=== PATIENT | female | born 2000 | race Caucasian/White ===

== ENCOUNTER 2025-02-05 12:45 | Outpatient (CLI) | payer BC, SELFPAY ==
--- NOTE | 2025-02-05 13:00 | CRLHL7_ITS ---
For Patients: As a result of the Cures Act, medical imaging exams and procedure reports are released immediately into your electronic medical record. You may view this report before your referring provider. If you have questions, please contact your health care provider. OB ULTRASOUND INDICATION: Dating and viability. TECHNIQUE: Real time grayscale imaging of the fetus was performed. Transvaginal. LMP: 12/11/2024. HENRY by LMP: 09/17/2025. GA: 8 w, 0 d. Previous US: No. CRL: 1.7 cm. 8 w 1 d. HENRY: 09/16/2024. FHR: 169 BPM. Gestational sac: 2.6 cm. Appears within normal limits. Yolk sac: 3.4 mm. Appears within normal limits. Right ovary: 3.2 x 1.3 x 2.0 cm. Left ovary: 3.0 x 2.5 x 2.2 cm. CL. COMMENT: Left corpus luteal cyst 1.7 x 1.6 x 1.5 cm. IMPRESSION: Single living intrauterine measuring 8 weeks 1 day and sonographic due dated 09/16/2025. Pedrito Moreno M.D. Diagnostic Radiologist [email or web address] ALDO/ovidio nolan/Dictated by: Pedrito Moreno MD @ 02/05/2025 1:31:00 PM (Electronically Signed)
--- OUTSIDE RECORDS SUMMARY | 2025-02-06 01:01 | XMS_ITS | Clinical Summary ---
Author Organization [facility] Address [address] [place] [address] Care Team Providers Care Underwriting Clerks Supervisor Name Role Phone Hugo Summers PA-C Primary Care Provider [phone] Source Comments You are receiving this document as you are listed as the primary care provider,follow-up provider, or the patient has been referred to you for consultation.This is in compliance with the Medicare and[facility] EHR Incentive Program,which states Providers who transition their patient to another setting of careor provider of care or refers their patient to another provider of care shouldprovide summary care record for each transition of care or referral. Tran[facility] Allergies Active Allergy Reactions Criticality Noted Date Comments Other 11/13/2003 PN: metal- local rash, Nickel allergy Medications clindamycin (CLEOCIN T) 1 % external solutionIndicat ions:Acne Vulgaris Apply topically two times a day. Indications: Common Acne 120 mL 6 4 Active ketoconazole (NIZORAL) 2 % creamIndication s:Tinea pedis of both feet Apply topically daily. Apply to affected areas of feet 2 times daily until clear plus one week 30 g 1 4 Active Active Problems Problem Noted Date Diagnosed Date Class 1 obesity due to exces s calories without serious comorbidity with body mass index (BMI) of 30.0 to 30.9 in adult 01/09/2024 Acne vulgaris 04/26/2017 Resolved Problems Problem Noted Date Diagnosed Date Resolved Date Otitis media 12/19/2006 03/21/2016 Overview (04/11/2017): Otitis Media NOS Immunizations Immunization Administration Dates Next Due 9vHPV (Gardasil 9) 04/07/2020,08/25/2019, 019 DTaP 01/26/2006, 2,2001,2001,0 2001 HepA Adult (19+ yrs) 04/07/2020 HepA Ped/Adol (1-18 yrs) 02/25/2019 HepB, Unspecified Formulation 2001, 001,2001 Hib (ActHIB) 04/25/2002,2001,2001 ,2001 IPV (Polio) 01/26/2006,2001,2001 ,2001 MCV4 Menveo 2m.+ (two vial) 02/25/2019, 6 MMR 01/26/2006,01/24/2002 Moderna Monovalent 12+ 12/28/2020,11/30/2020 Moderna Monovalent Booster 12+ 08/23/2021 TDAP (BOOSTRIX) 02/04/2013 Tdap 03/16/2023 Varicella 02/04/2013,01/24/2002 Family History Medical History Relation Name Comments Hypertension Father Dad Arrhythmia Maternal Grandfather bradyca rdia Cataract Maternal Grandfather Asthma Maternal Grandmother Hypertension Paternal Grandfather Grandpa Cataract Paternal Uncle Blindness Negative Family History Macular Degeneration Negative Family History Retinal Detachment Negative Family History Relation Name Status Comments Father Dad Maternal Grandfather Maternal Grandmother Paternal Grandfather Grandpa Paternal Uncle Social History Tobacco Use Types Packs/Day Years Used Date Smoking Tobacco: Never Smokeless Tobacco: Never Tobacco Cessation:Counseling Given: Not Answered Alcohol Use Standard Drinks/Week Comments Yes 0 (1 standard drink = 0.6 oz pur e alcohol) Once a month, one drink PHQ-2 Answer Date Recorded PHQ-2 Score 0 03/16/2023 Financial Resource Strain Answer Date R ecorded Is it hard for you to pay fo r the very basics like food, housing, medical care or heating? No 01/08/2024 Food Insecurity Answer Date Recorded Does your food run out before you have the money to buy more? No 01/08/2024 Transportation Needs Answer Date Record ed Does a lack of transportatio n keep you from your medical appointments or from getting your medications? No 024 Comments No Sex and Gender Information Value Date Recorded Sex Assigned at Not on file Legal Sex Female 7:14 AM CDT Gender Identity Not on file Sexual Orientation Not on file Occupation Industry Job Start Date Job End Date Student Not on file Not on file Not on file Last Filed Vital Signs Vital Sign Reading Time Taken Comments Blood Pressure 103/71 01/09/2024 9:06 AM CDT Pulse 68 01/09/2024 9:06 AM CDT Temperature 36.7 C (98.1 F) 01/12/2015 5:09 PM CDT Respiratory Rate 24 03/08/2007 10:12 AM CDT Oxygen Saturation - - Inhaled Oxygen Concentration - - Weight 91.2 kg (201 lb) 01/09/2024 9:06 AM CDT Height 174 cm (5' 8.5) 01/09/2024 9:06 AM CDT Body Mass Index 30.12 01/09/2024 9:06 AM CDT Plan of Treatment Health Maintenance Due Date Last Done Comments Hep C Screening (Preventive Services) 2001 HIV Screening (Preventive Services) 2017 COVID-19 Vaccine ( season) 2024 08/23/2021, 12/28/2020, 11/30/2020 Adult Preventive Visit 01/08/2025 , 03/16/2023, 04/06/2021, Additional history exists Chlamydia 01/08/2025 01/09/2024 Influenza Vaccine (Season Ended) 2025 Cervical Cancer Screening 03/16/2026 03/16/2023 DTaP/Tdap/Td Vaccine (8 - Tdap) 03/16/2033 03/16/2023, 02/04/2013, 02/04/2013, Additional history exists Zoster/Shingles Vaccine (1 of 2) 2051 HepB Vaccine Completed 2001, 01/2001, 2001 Hib Vaccine Completed 04/25/2002, 01/2001, 2001, Additional history exists IPV (Polio) Vaccine Completed 01/26/2006, 2001, 2001, Additional history exists Varicella Vaccine Completed 02/04/2013, , 01/24/2002 MCV4 Vaccine Completed 02/25/2019, 03/21/2016 HPV Vaccine Completed 04/07/2020, 01/2020, 02/25/2019 HepA Vaccine Completed 04/07/2020, 02/25/2019 Meningococcal B Vaccine Aged Out No l onger eligible based on patient's age to complete this topic Pneumococcal Vaccine Aged Out No long er eligible based on patient's age to complete this topic Procedures Procedure Name Priority Date/Time Associated Diagnosis Comments CHLAMYDIA & GC, URINE (14 YEARS AND OLDER) Routine 01/09/2024 9:32 AM CDT Routine screening for STI (sexually transmitted infection) CYTOLOGY (PAP) Routine 03/16/2023 10:11 AM CDT Screening for malignant neoplasm of cervix from Last 3 Months or Most Recently Relevant to Health Maintenance Results * Chlamydia & GC, Urine (14 Years and Older) (01/09/2024 9:32 AM CDT) Chlamydia Trachomatis STD Not Detected Not Detected 01/09/2024 9:51 PM CDT [facility] N. gonorrhoeae STD Not Detected Not Detected 01/09/2024 9:51 PM CDT [facility] Urine STD (Urine for STD) Non-blood Collection / Unknown 01/09/2024 9:32 AM CDT 01/09/2024 9:32 AM CDT Narrative [facility] - 01/09/2024 9:51 PM CDT Test performed by [employer] Amplification (TMA). us Hugo Summers PA-C LAB_1 Final Result [facility] [address] [place] [address], [facility] * PAP Test (03/16/2023 10:11 AM CDT) Case Report Pap Case: [id number] Authorizing Provider: Hugo Summers PA-C Collected: 03/16/2023 1011 Ordering Location: [facility] Received: 03/16/2023 1246 First Screen: Karly Crews Specimen: Pap Test, Routine, Cervix/Endocervix 03/28/2023 12:26 PM CDT [facility] Pap Specimen Adequacy Satisfactory for evaluation, endocervical/green sformation zone component present. 03/28/2023 12:26 PM CDT [facility] Pap Interpretation (NILM) Negative for intraepithelial lesion or malignancy. 03/28/2023 12:26 PM CDT [facility] at 1226 CDT Pap Disclaimer The Pap test is a screening test to aid in the detection of cervical and vaginal cancers and their precursor lesions. It is not a diagnostic procedure and should not be used as the sole means of detecting malignancy. Both false-positive and false-negative results may occur. 03/28/2023 12:26 PM CDT [facility] Gross Description The specimen is received in SurePath fixative and properly labeled. 1 Pap-stained SurePath slide is prepared. 03/28/2023 12:26 PM CDT [facility] Embedded Images 12:26 PM CDT [facility] Other Specimen Type ENTIRE ENDOCERVIX / Unknown 03/16/2023 10:11 AM CDT 03/16/2023 12:46 PM CDT Comment:LMP: No LMP recorded . Hguo Summers PA-C LAB PATHOLOGY Final Result [facility] [address] [place] [address], [facility] from Last 3 Months or Most Recently Relevant to Health Maintenance Insurance [facility] Care Teams Underwriting Clerks Supervisor Relationship Specialty Start Date End Date Hugo Summers PA-C [address], [place] [address] PCP - General 02/04/13
== END 2025-02-05 12:46 | disposition home or self-care (01) ==
LOC: US 12:45
PROVIDERS: Visit Provider Advanced Practice Midwife
DX: Z34.91 Encounter for supervision of normal pregnancy, unspecified, first trimester (principal); O34.81 Maternal care for other abnormalities of pelvic organs, first trimester; N83.12 Corpus luteum cyst of left ovary; Z3A.08 8 weeks gestation of pregnancy
CPT/HCPCS: 76817; 83021; 86592; 86703; 86704; 86706; 86762; 86787; 86803; 86850; 86900; 86901; 87086; 87340

== ENCOUNTER 2025-05-01 13:37 | Outpatient (CLI) | payer BC, SELFPAY ==
--- NOTE | 2025-05-01 13:45 | CRLHL7_ITS ---
For Patients: As a result of the Century Cures Act, medical imaging exams and procedure reports are released immediately into your electronic medical record. You may view this report before your referring provider. If you have questions, please contact your health care provider. LMP: 12/11/2024. HENRY by LMP: 09/17/2025. GA: 20 w, 1 d. INDICATION: Basic anatomy survey. PREVIOUS: 02/05/2025. TECHNIQUE: Real time lopez scale imaging of the fetus was performed. Evaluate anatomy. Transabdominal imaging performed. position: Vertex. Cervix: Visualized. Technique: Transabdominal. Length of closed cervix: 3.2 cm. Placenta/cord: Position: Anterior. Technique: Transabdominal. Placenta tip to internal Os: 8 cm. Umbilical Cord: 3-vessel cord. Placenta insertion: Central. Amniotic Fluid: 4.6 cm SDP (greater than/equal to: 2- less than 8 cm). SURVEY: Observed Structures. Calvarium/Spine: Cerebellum: 2 cm, 20 w 1 d. Cisterna Magna: 5 mm. Nuchal Fold: 3.1 mm. Lateral Ventricle: 6.8 mm. CSP: Yes. Midline Falx: Yes. Choroid Plexus: Yes. Spine: Yes. Abdomen: Stomach: Yes. Abd Cord Insertion: Yes. Urinary Bladder: Yes. Kidneys: Yes. Diaphragm: Yes. Face: Nose/lips: Yes. Orbital view: Yes. Profile: Yes. Limbs: Upper Extremities: Yes. Lower Extremities: Yes. Hands: Yes. Feet: Yes. Vascular: 4-Chamber Heart: Yes. LVOT: Yes. RVOT: Yes. 3VV: Yes. 3VTV: Yes. BPD: 5.1 cm, 21 weeks 3 days, 91st percentile. HC: 18.4 cm, 20 weeks 5 days, 71st percentile. AC: 16.8 cm, 21 weeks 6 days, 90th percentile. FL: 3.6 cm, 21 weeks 2 days, 81st percentile. FL/AC ratio: 21.25 percent. HC/AC ratio: 1.10. heart rate: 135 bpm. age by this US: 21 w, 1 d. HENRY by this US: 09/10/2025. EFW: 428 g. Weight: 0 lbs, 15 oz. Percentile by HENRY: >97 percent. IMPRESSION: 1. Sonographic gestational age 21 weeks 1 day and sonographic due date 09/10/2025. Sonographic age is 1 week 1 week ahead of the clinical age. 2. Estimated weight greater than 97th percentile. 3. Abdominal circumference 98th percentile. 4. Normal anatomic survey. Pedrito Moreno M.D. Diagnostic Radiologist [email or web address] ALDO/chago DW/Dictated by: Pedrito Moreno MD @ 05/02/2025 7:04:00 AM (Electronically Signed)
== END 2025-05-01 13:38 | disposition home or self-care (01) ==
LOC: US 13:37
PROVIDERS: Visit Provider Obstetrics & Gynecology
DX: O36.62X0 Maternal care for excessive fetal growth, second trimester, not applicable or unspecified (principal); Z3A.20 20 weeks gestation of pregnancy
CPT/HCPCS: 76805

== ENCOUNTER 2025-07-03 14:32 | Outpatient (CLI) | payer BC, SELFPAY | END 2025-07-03 14:33 | disposition home or self-care (01) | LOC: NFLDREF 07-08 19:02 | PROVIDERS: Visit Provider Obstetrics & Gynecology | DX: Z34.93 Encounter for supervision of normal pregnancy, unspecified, third trimester (principal) | CPT/HCPCS: 86592 ==